=== PATIENT | male | born 1975 | race Caucasian/White ===

== ENCOUNTER → 2021-04-01 14:11 | Outpatient (CLI) | payer BC, SELFPAY ==
--- NOTE | ~2021-04-01 | XR_ITS ---
EXAMINATION:[id number] DATE: 04/01/2021 14:33 INDICATION: Chronic neck pain TECHNIQUE: AP, lateral, lateral swimmers and odontoid views of the cervical spine are provided. COMPARISON: MRI, 11/19/2015 FINDINGS: Alignment is normal. The odontoid is intact. No fracture is identified. The vertebral body heights are maintained. There is mild loss of intervertebral disc space height at C5-6 and C6-7. Smal l degenerative osteophytes project from the anterior endplates of multiple vertebral bodies. There is mild multilevel facet and uncovertebral joint osteoarthritis. Prevertebral soft tissues are normal. IMPRESSION: 1. Mild cervical spondylosis without acute findings or significant interval change. Reviewed, dictated and finalized at location [employer] IMPRESSION: 1. Mild cervical spondylosis without acute findings or significant interval crystal e.
== END ==
PROVIDERS: PCP Nurse Practitioner Family; Visit Provider Nurse Practitioner Family
DX: M47.892 Other spondylosis, cervical region (principal)
CPT/HCPCS: 72040